=== PATIENT | female | born 1985 ===

== ENCOUNTER 2020-06-10 17:42 | Emergency (ER) | payer OTHER ==
[2020-06-10 17:52] VITALS: BP 136/111; PULSE 79
[2020-06-10] MEDS ORDERED: Diphtheria,Pertussis(Acell),Tetanus Vaccine 0.5 ML Syringe IM ONE (18:04)
--- NOTE | 2020-06-10 18:10 | EDM.PDOC ---
ED HPI GENERAL MEDICAL PROBLEM - General Chief Complaint: Laceration Stated Complaint: RT POINTER FINGER LAC Time Seen by Provider: 06/10/20 17:51 Source of Information: Reports: Patient, RN Notes Reviewed History Limitations: Reports: No Limitations - History of Present Illness INITIAL COMMENTS - FREE TEXT/NARRATIVE: Patient is a 35-year-old female who presents to the ED for evaluation of a right pointer finger laceration. The patient notes she was cutting green onions at work, with a very sharp knife, she was not necessarily paying attention to what she was doing, and she ended up lacerating the tip of her right index finger. This resulted in a transverse laceration of the distal fingertip, of which the skin is missing. It does not appear to affect the bone at all. This did take part of the nail with it. She is not sure of her last tetanus vaccine. Patient denies any other sick-like symptoms, fever/chills, cough/shortness of breath, nausea/vomiting/diarrhea. Right Finger-Index Pain Score (Numeric/FACES): 3 - Related Data Allergies Allergy/AdvReac Type Severity Reaction Status Date / Time codeine Allergy Rash Verified 06/10/20 17:52 Home Meds: Home Meds Levothyroxine Sodium [Synthroid] 25 mcg PO DAILY 06/06/16 [History] Nuva Ring 1 appful .XX ASDIRECTED 06/06/16 [History] Cetirizine [ZyrTEC] 10 mg PO DAILY 06/10/20 [History] PARoxetine [Paxil] 20 mg PO DAILY 06/10/20 [History] valACYclovir [Valtrex] 1,000 g PO DAILY 06/10/20 [History] Past Medical History - Past Health History Medical/Surgical History: Denies Medical/Surgical History Endocrine/Metabolic History: Reports: Hypothyroidism Social & Family History - Family History Family Medical History: No Pertinent Family History - Tobacco Use Tobacco Use Status *Q: Never Tobacco User Second Hand Smoke Exposure: No - Caffeine Use Caffeine Use: Reports: Coffee - Recreational Drug Use Recreational Drug Use: No ED ROS GENERAL - Review of Systems Review Of Systems: Comprehensive ROS is negative, except as noted in HPI. ED EXAM, SKIN/RASH Exam: See Below Exam Limited By: No Limitations General Appearance: Alert, WD/WN, No Apparent Distress Respiratory/Chest: No Respiratory Distress, Lungs Clear, Normal Breath Sounds, No Accessory Muscle Use, Chest Non-Tender Cardiovascular: Normal Peripheral Pulses, Regular Rate, Rhythm, No Murmur Peripheral Pulses: 2+: Radial (L), Radial (R) Extremities: Normal Range of Motion, Normal Capillary Refill Neurological: Alert, Oriented, Normal Cognition, No Motor/Sensory Deficits Psychiatric: Normal Affect, Normal Mood Skin: Warm, Dry, Normal Color, No Rash, Wound/Incision (There is a wound to the patient's distal index finger, the skin is completely gone, along with a part of the nail. This travels in a transverse fashion, and is roughly 1.5 centimeters long by 1 cm wide) Course - Vital Signs Last Recorded V/S: Last Vital Signs Temp 97.2 F 06/10/20 17:49 Pulse 79 06/10/20 17:49 Resp 18 06/10/20 17:49 BP 136/111 H 06/10/20 17:49 Pulse Ox 98 06/10/20 17:49 - Orders/Labs/Meds Orders: Active Orders 24 hr Category Date Time Status Vaccines to be Administered [RC] PER UNIT ROUTINE Care 06/10/20 18:04 Ordered Diphth,Pertuss(Acell),Tet Vac [Adacel] Med 06/10/20 18:04 Once 0.5 ml IM .ONCE ONE Medication Orders Diphtheria/Tetanus/Acell Pertussis (Adacel) 0.5 ml IM .ONCE ONE Stop: 06/10/20 18:05 Meds: Medications Generic Name Dose Route Start Last Admin Trade Name Freq PRN Reason Stop Dose Admin Diphtheria/Tetanus/Acell Pertussis 0.5 ml 06/10/20 18:04 Adacel IM 06/10/20 18:05 .ONCE ONE - Re-Assessments/Exams Free Text/Narrative Re-Assessment/Exam: 06/10/20 18:07 Patient presents to the ED for evaluation of her finger laceration. Unfortunately there does not seem to be any sort of area to repair. She will have a pressure dressing placed, along with appropriate wound management instructions. We will have her follow-up in clinic in the coming days to make sure that everything is getting better as expected. She will have her tetanus updated at today's visit. Departure - Departure Time of Disposition: 18:07 Disposition: Home, Self-Care 01 Condition: Good Clinical Impression: Laceration of finger Qualifiers: Encounter type: initial encounter Finger: index finger Damage to nail status: with damage Foreign body presence: without foreign body Laterality: right Qualified Code(s): S61.310A - Laceration without foreign body of right index finger with damage to nail, initial encounter - Discharge Information *PRESCRIPTION DRUG MONITORING PROGRAM REVIEWED*: No *COPY OF PRESCRIPTION DRUG MONITORING REPORT IN PATIENT GINGER: No Instructions: Laceration Care, Adult, [id number] Referrals: Ildefonso Fitzpatrick PA-C [Primary Care Provider] - Additional Instructions: You were evaluated in the ER today for your right index finger injury. Your wound was managed with a pressure bandage, as there was no skin to repair with sutures. Please keep the area clean and dry, you may wash with warm soapy water, do not submerge this area in water for a prolonged amount of time until there is an adequate scab over the area. I would recommend that you keep doing pressure bandages over the next few days to help provide a good healing environment. You may take Tylenol/ibuprofen every 6 hours as needed for further pain relief. I would recommend that you follow-up with your primary care provider, sometime next week to make sure that the wound is healing as expected. Please watch out for any signs of infection like redness, drainage at the wound site, pain, or swelling. Please return to the ER at any time if your symptoms change or worsen. Sepsis Event Note (ED) - Evaluation Sepsis Screening Result: No Definite Risk - Focused Exam Vital Signs: Vital Signs Temp Pulse Resp BP Pulse Ox 06/10/20 17:49 97.2 F 79 18 136/111 H 98 - My Orders Last 24 Hours: My Active Orders 06/10/20 18:04 Vaccines to be Administered [RC] PER UNIT ROUTINE Diphth,Pertuss(Acell),Tet Vac [Adacel] 0.5 ml IM .ONCE ONE - Assessment/Plan Last 24 Hours: My Active Orders 06/10/20 18:04 Vaccines to be Administered [RC] PER UNIT ROUTINE Diphth,Pertuss(Acell),Tet Vac [Adacel] 0.5 ml IM .ONCE ONE
== END 2020-06-10 19:05 | disposition home or self-care (01) ==
LOC: JD.ED 17:42
DX: S61.310A Laceration without foreign body of right index finger with damage to nail, initial encounter (principal); E03.9 Hypothyroidism, unspecified; Y99.0 Civilian activity done for income or pay; Z88.5 Allergy status to narcotic agent; Z79.899 Other long term (current) drug therapy; Z23 Encounter for immunization; W26.0XXA Contact with knife, initial encounter
CPT/HCPCS: 90471; 90715; 99282